=== PATIENT | female | born 1985 | race Caucasian/White ===

== ENCOUNTER 2016-09-25 12:08 | Inpatient (IN) | payer BC ==
[2016-09-25] MEDS ORDERED: ONDANSETRON HCL/PF 2 MG/ML VIAL IV PRN (12:10)
[2016-09-25] MEDS ORDERED: BUTORPHANOL TARTRATE 2 MG/ML VIAL IV PRN (12:10)
[2016-09-25] MEDS ORDERED: RINGERS SOLUTION,LACTATED 1,000 ML IV PRN (12:10)
[2016-09-25] MEDS ORDERED: OXYTOCIN/DEXTROSE 5%-WATER 30 UNITS/500 ML BAG IV ONE ×2 (12:10→15:47)
[2016-09-25] MEDS ORDERED: RINGERS SOLUTION,LACTATED 1,000 ML IV ONE (12:10)
[2016-09-25] MEDS ORDERED: LIDOCAINE HCL 50 ML VIAL PERI PRN (12:10)
[2016-09-25] MEDS: DEXTROSE 5%-LACTATED RINGERS 1,000 ML IV PRN ×2 (12:31→15:32)
--- NOTE | 2016-09-25 12:49 | PN ---
Progess Note - Interim Narrative: 09/25/16 12:47 Subjective-complaining of contractions 5 out of 10 Objective- SVE- 5-/-2, amniotomy performed, minimal amount of fluid FHTs- 140s, moderate variability, positive accelerations, no decelerations [place]- every 2 minutes Assessment and plan- Labor-spontaneous continue to monitor GBS status-negative Pain control as needed Continue current plan of care.
[2016-09-25] MEDS ORDERED: BUPIVACAINE HCL/0.9 % NACL/PF 250 ML EP PRN ×2 (14:31→21:11)
--- NOTE | 2016-09-25 14:36 | OR ---
Anesthesia Pre Procedure Eval Date of Service: 09/25/16 Pre Procedure Evaluation: Last Vital Signs Temp 36.7 C 01/13/14 10:00 Pulse Resp BP 116/73 01/13/14 11:12 Pulse Ox Anesthesia Pre Procedure Evaluation Heart Rate:86 Blood Pressure:130/67 Termperature:36.9 Respiratory Rate:18 SaO2:98 DATE: 09/25/2016 TIME: 1435 INDICATIONS: Active labor, labor pain PAST MEDICAL HISTORY: Primipara patient in active labor requesting labor analgesia. EXAM: Heart regular; lungs clear ASSESSMENT OF MEDICAL STATUS: Appropriate candidate for labor analgesia PLANNED PROCEDURE: Combination spinal epidural for labor analgesia. Home Medications: HOME MEDICATIONS Vit#96/Ferrous Fum/FA [ S] 1 tab PO DAILY 09/25/16 [Last Taken 09/24/16 09:00]
[2016-09-25] MEDS ORDERED: fentaNYL CITRATE/PF 50 MCG/ML AMPUL IT SCH (14:45)
--- NOTE | 2016-09-25 15:07 | OR ---
Anesthesia Procedure Note - Anesthesia Procedure Note Date of Service: 09/25/16 Narrative: Vital Signs - Last Taken Temp 36.7 C 01/13/14 10:00 Pulse Resp BP 116/73 01/13/14 11:12 Pulse Ox 09/25/16 15:05 ANESTHESIA PROCEDURE NOTE Date of Procedure: 09/25/2016 Time of procedure: 1435. Performed by: SONAL Ohara CRNA, MSN Bag Washer: Emy Ruiz RN. Preprocedure diagnosis: Active labor, labor pain. Post procedure diagnosis: Same. Procedure: Labor Epidural Placement L3 4. Indications: Labor pain. Findings: See below. Details of the procedure: The patient was placed on the side of the bed in sitting position. The patient was prepped with DuraPrep and draped in a sterile fashion. Lidocaine 1% was infiltrated to the skin and subcutaneous tissues at the level of the L3 4 interspace. The epidural space was identified using a 18-gauge Tuohy needle with [id number] technique. Fentanyl 20 g was given intrathecally the intrathecal needle was then removed and the epidural catheter was threaded approximately 4 cm, the epidural needle was then removed, and after careful aspiration 3 mL of 1.5% lidocaine with 1-200,000 epinephrine was injected without change in maternal heart rate or sensorium. The catheter was then taped in place. EBL: Minimal. Fluids: N/A. Specimen: N/A. Post procedure condition: The patient tolerated the procedure well with good relief. No complications were noted. Thank you for this consultation. Toño Bojorquez CRNA, SONAL, MSN
[2016-09-26] MEDS ORDERED: ONDANSETRON HCL/PF 2 MG/ML VIAL IV ONE (02:19)
[2016-09-26] MEDS ORDERED: GLYCERIN/WITCH HAZEL LEAF 40 APPL BOX TP PRN (02:27)
[2016-09-26] MEDS ORDERED: HYDROCORTISONE 30 APPL TUBE TP PRN (02:27)
[2016-09-26] MEDS ORDERED: oxyCODONE HCL/ACETAMINOPHEN 1 TAB TABLET PO PRN (02:27)
[2016-09-26] MEDS ORDERED: SENNOSIDES 8.6 MG TABLET PO PRN (02:27)
[2016-09-26] MEDS ORDERED: OXYTOCIN/DEXTROSE 5%-WATER 30 UNITS/500 ML BAG IV ONE (02:27)
[2016-09-26] MEDS ORDERED: BENZOCAINE/MENTHOL 81 SPRAY CAN TP PRN (02:27)
[2016-09-26] MEDS ORDERED: BISACODYL 10 MG SUPP.RECT RC PRN (02:27)
--- NOTE | 2016-09-26 02:36 | OR ---
Operative Report - Dictated Report Narrative: Spontaneous Vaginal Delivery Viable male . Apgars of 4 at 1 min and 8 at 5 min. Presentation was R OA. Tight nuchal cord that was clamped and cut at the perineum. The left anterior shoulder delivered without difficulty followed by the posterior shoulder and the remainder of the baby. Copious amount of thick meconium was noted after delivery of the baby. The baby was taken straight to the warmer. Weight: 9lbs 5.7oz, 4245grams Placenta was delivered spontaneously and intact. Partial 3rd degree laceration repaired with 2-0 vicryl. Estimated blood loss: 200 ml Mother and baby tolerated delivery well. History for Definition: * The number of deliveries resulting in a live the patient experienced prior to current hospitalization * The previous delivery of live twins or any live multiple gestation is considered one live event. *If primagravida or nulliparous is documented select zero for the number of previous live births. Live Events: 0
[2016-09-26] MEDS: oxyCODONE HCL/ACETAMINOPHEN 1 TAB TABLET PO PRN ×4 (03:01→19:03)
[2016-09-26] MEDS: IBUPROFEN 800 MG TABLET PO PRN ×2 (07:27→16:06)
[2016-09-26] MEDS: DOCUSATE SODIUM 100 MG CAPSULE PO SCH ×2 (12:22→21:33)
[2016-09-27] MEDS: IBUPROFEN 800 MG TABLET PO PRN ×4 (01:00→23:30)
[2016-09-27] MEDS: oxyCODONE HCL/ACETAMINOPHEN 1 TAB TABLET PO PRN ×4 (04:01→23:31)
--- NOTE | 2016-09-27 08:09 | PN ---
Progess Note - Interim Narrative: 09/27/16 08:08 progress note Subjective: The patient is doing well. She is ambulating, voiding, tolerating by mouth. She has minimal pain and moderate lochia. Objective: General: No acute distress Abdomen: Soft, nontender, fundus is firm just below the umbilicus Extremities: minimal edema, nontender to palpation Assessment and plan: day 1 Feeding: Breast Pain: Controlled with by mouth medication Routine care.
[2016-09-27] MEDS: DOCUSATE SODIUM 100 MG CAPSULE PO SCH (08:43)
[2016-09-28] MEDS: DOCUSATE SODIUM 100 MG CAPSULE PO SCH ×2 (01:26→09:12)
[2016-09-28] MEDS: IBUPROFEN 800 MG TABLET PO PRN ×2 (05:50→12:58)
[2016-09-28] MEDS: oxyCODONE HCL/ACETAMINOPHEN 1 TAB TABLET PO PRN ×3 (05:50→12:59)
[2016-09-28 08:08] VITALS: BP 108/66
--- NOTE | 2016-09-28 08:41 | PN ---
Subjective - Date and Time Seen Date: 09/28/16 Time: 08:40 Objective - Vitals Vitals: Last Vital Signs Temp 36.4 C L 09/28/16 07:53 Pulse 70 09/28/16 07:53 Resp 20 09/28/16 07:53 BP 108/66 09/28/16 07:53 Pulse Ox 99 09/28/16 01:47 Patient denies complaints. Breast-feeding and bonding well with . Lochia wnl Abdomen - soft, nontender Uterus - firm, at umbilicus - 2 No calf tenderness Impression: day #2 - s/p spontaneous vaginal delivery. Third degree vaginal laceration Plan: Routine discharge instructions. Perineal care reviewed.
== END 2016-09-28 15:40 | disposition home or self-care (01) | DRG 775 ==
LOC: OB 12:08
PROVIDERS: ADMIT Obstetrics & Gynecology Gynecologic Oncology; ATTEND Obstetrics & Gynecology Gynecologic Oncology
PROC: 10E0XZZ Delivery of Products of Conception, External Approach (ICD-10-PCS; principal; 2016-09-26)
PROC: 0DQR0ZZ Repair Anal Sphincter, Open Approach (ICD-10-PCS; 2016-09-26)
PROC: 4A1HXCZ Monitoring of Products of Conception, Cardiac Rate, External Approach (ICD-10-PCS; 2016-09-26)
PROC: 10907ZC Drainage of Amniotic Fluid, Therapeutic from Products of Conception, Via Natural or Artificial Opening (ICD-10-PCS; 2016-09-26)
PROC: 3E0S3CZ (ICD-10-PCS; 2016-09-26)
DX: O69.1XX0 Labor and delivery complicated by cord around neck, with compression, not applicable or unspecified (principal); O70.20 Third degree perineal laceration during delivery, unspecified; O77.0 Labor and delivery complicated by meconium in amniotic fluid; Z3A.40 40 weeks gestation of pregnancy; Z37.0 Single live birth

== ENCOUNTER 2019-07-09 21:18 | Inpatient (IN) ==
[2019-07-09] MEDS ORDERED: NALOXONE HCL 1 MG/1 ML SYRG IV PRN (21:51)
[2019-07-09] MEDS ORDERED: ONDANSETRON HCL/PF 2 MG/ML VIAL IV PRN (21:51)
[2019-07-09] MEDS ORDERED: BUPIVACAINE HCL/0.9 % NACL/PF 250 ML EP PRN (21:51)
--- NOTE | 2019-07-09 21:51 | HP ---
Chief Complaint - Chief Complaint Date of Service: 07/09/19 Time of Service: 21:41 Chief Complaint: contractions History of Present Illness: 33 yo at 40 1/7 weeks presents to L&D complaining of painful contractions since earlier today. Denies WONG, visual changes, epigastric pain, decreased movement or LOF. This complicated by ADHD, fibromyalgia, anemia, h/o 3rd degree vaginal laceration. Rh positive Rubella immune GBS negative Medical History (Last Reviewed 07/09/19 @ 21:42 by Schuyler House DO) ADD (attention deficit disorder) Onset Date: ~06/19/12 Allergic rhinitis Fibromyalgia Anemia Onset Date: ~08/27/14 Heart palpitations Onset Date: ~05/07/13 Lipoma Onset Date: ~2013 Dr. Kathleen-benign lobulated lipoma left posterior neck Spontaneous Onset Date: ~12/2014, 07/2015 Heart palpitations Surgical History: Surgical History (Last Reviewed 07/09/19 @ 21:42 by Schuyler House DO) History of wisdom tooth extraction Onset Date: ~2007 Family History: Family History (Last Reviewed 07/09/19 @ 21:42 by Schuyler House DO) Mother Alive and well Father Heart disease Social History: (Last Reviewed 07/09/19 @ 21:42 by Schuyler House DO) Social History: adopted: No Marital status: household members: children, spouse current occupational status: employed current occupation: CATERING ADMINISTRATIVE ASSISTANT Highest education level completed: high school graduate Service: No Tobacco: Smoking Status: Never smoker Alcohol: alcohol intake: never Substance Use: substance use type: does not use Dietary Habits: caffeine: No Pets: pets and animals: cat(s), dog(s) Review Of Systems (GEN) - Review of Systems Generalized/Overall Review: Present: No Symptoms Reported EENTM: Present: No Symptoms Reported Respiratory: Present: No Symptoms Reported Cardiac: Present: No Symptoms Reported Abdominal: Present: Other - contractions Genitourinary: Present: No Symptoms Reported Musculoskeletal: Present: No Symptoms Reported Neurological: Present: No Symptoms Reported Skin: Present: No Symptoms Reported Endocrine: Present: No Symptoms Reported Allergies/Adverse Reactions: Allergies Allergy/AdvReac Type Severity Reaction Status Date / Time drospirenone [From KATRIN (28)] AdvReac palpitation Verified 07/04/19 10:58 s ethinyl estradiol AdvReac palpitation Verified 07/04/19 10:58 [From KATRIN (28)] s Home Medications: HOME MEDICATIONS Vits96/Iron Fum/Folic [ S] 1 tab PO DAILY 09/25/16 [Last Taken 09/24/16 09:00] breast pump See Dose Instructions .ROUTE .MEDSUJOHNLY #1 ea 05/09/19 [Last Taken Unknown] Exam - Exam Vital Signs: BP 144/71, P 95, R 18, T 36.3, O2 100% Constitutional: Present: Alert, Oriented x3, Moderate distress - with contractions ENT Exam: Present: hearing grossly normal Neck: Present: non-tender, supple, trachea midline. Absent: thyromegaly Breasts: Present: Exam deferred Respiratory: Present: lungs clear, no respiratory distress Cardiovascular/Chest: Present: regular rate, rhythm, no edema Abdomen: Present: soft, nontender, no rebound tenderness, other - gravid /Rectal: Present: Other - cervix - 6/70/-2 Extremity: Present: no pedal edema, no calf tenderness Skin Exam: Present: normal color, warm/dry, no cyanosis Lymphatic: Present: no adenopathy Neurologic: Present: alert, normal mood/affect, oriented x 3 Appearance: Present: appropriate appearance, appropriate insight Eye contact: Present: cooperative, good eye contact Thoughts: Present: normal thought pattern, normal mood /affect Assessment/Plan - Assessment/Plan (1) Labor established Assessment: Admit for routine management of labor. Epidural PRN. Problem: Acute
[2019-07-09] MEDS ORDERED: ONDANSETRON 4 MG TAB.RAPDIS PO PRN ×2 (21:52→21:53)
[2019-07-09] MEDS ORDERED: DEXTROSE 5%-LACTATED RINGERS 1,000 ML IV PRN ×2 (21:52→21:53)
[2019-07-09] MEDS ORDERED: OXYTOCIN/DEXTROSE 5%-WATER 30 UNITS/500 ML BAG IV ONE (21:52)
[2019-07-09] MEDS ORDERED: RINGER'S SOLUTION,LACTATED 1,000 ML IV ONE ×2 (21:52→21:53)
[2019-07-09] MEDS ORDERED: fentaNYL CITRATE/PF 50 MCG/ML AMPUL IT SCH (22:00)
--- NOTE | 2019-07-09 22:26 | ANES ---
Anesthesia Pre Procedure Eval Vitals/Labs: Last Vital Signs Temp 36.3 C 07/09/19 22:07 Pulse 95 07/09/19 22:07 Resp 18 07/09/19 22:07 BP 144/71 H 07/09/19 22:07 Pulse Ox 100 07/09/19 22:07 HOME MEDICATIONS RX: Vits96/Iron Fum/Folic [ S] 1 tab PO DAILY 09/25/16 [Last Taken 09/24/16 09:00] breast pump See Dose Instructions .ROUTE .MEDSUPPLY #1 ea 05/09/19 [Last Taken Unknown] Allergies/Adverse Reactions: Allergies Allergy/AdvReac Type Severity Reaction Status Date / Time drospirenone [From KATRIN (28)] AdvReac palpitation Verified 07/04/19 10:58 s ethinyl estradiol AdvReac palpitation Verified 07/04/19 10:58 [From KATRIN (28)] s - Planned Procedure Planned Procedure: LABOR Medication List Reviewed:: Yes Allergies Verified: Yes Medical History (Last Reviewed 07/09/19 @ 22:25 by Faizan Sanchez CRNA) ADD (attention deficit disorder) Onset Date: ~06/19/12 Allergic rhinitis Fibromyalgia Anemia Onset Date: ~08/27/14 Heart palpitations Onset Date: ~05/07/13 Lipoma Onset Date: ~2013 Dr. Kathleen-benign lobulated lipoma left posterior neck Spontaneous Onset Date: ~12/2014, 07/2015 Heart palpitations Surgical History (Last Reviewed 07/09/19 @ 22:25 by Faizan Sanchez CRNA) History of wisdom tooth extraction Onset Date: ~2007 Family History (Last Reviewed 07/09/19 @ 22:25 by Faizan Sanchez CRNA) Mother Alive and well Father Heart disease - Family Anesthesia History Family History:: no untoward family reactions to anesthesia - Airway/Neck/Teeth Within Normal Limits:: Yes Teeth Condition: intact Neck Exam: full range of motion Mallampatti Score: 2 Thyromental (T-M) distance: > 6 cm Mandibulo Hyoid distance: > 3 cm - Respiratory Respiratory Physical: lungs clear Smoking Status: Never smoker Sleep Apnea currently treated: No Sleep Apnea by current assessment: No - Cardiovascular Tolerate Activity: Good - Gastrointestinal NPO since: 1800 - Anesthesia Assessment and Plan ASA Class: PS, II, E Anesthesia Type Plan: Epidural Planned difficult intubation/equipment available: No
--- NOTE | 2019-07-09 22:27 | ANES ---
Post Anesthesia Discharge - Transfer of Care Transfer of Care handoff given to nurse: Yes - Anesthesia Post Op Note Anesthesia Post Op Note: Care transfered to OB RN
--- NOTE | 2019-07-09 22:27 | ANES ---
Post Anesthesia Assessment - Vital Signs Vitals: Last Vital Signs Temp 36.3 C 07/09/19 22:07 Pulse 95 07/09/19 22:07 Resp 18 07/09/19 22:07 BP 144/71 H 07/09/19 22:07 Pulse Ox 100 07/09/19 22:07 Airway Patency: Normal - Mental Status Level Of Consciousness: Awake - Pain Level Pain Score: 2 - N/V Assessment Nausea/Vomiting Presence: None Dehydration:: No
--- NOTE | 2019-07-09 22:29 | ANES ---
Anesthesia Procedure Note Procedure Note: ANESTHESIA PROCEDURE NOTE Date of Procedure: 07/09/2019 Time of procedure: 2209 Performed by: Costa Sanchez CRNA Bonded Strand Operator: None. Preprocedure diagnosis: Active labor. Post procedure diagnosis: Same. Procedure: Insertion of labor epidural. Indications: The patient is a 33-year-old multigravida female in active labor requesting labor epidural for pain management. Findings: See below. Details of the procedure: The patient was placed in a sitting position. Back was prepped with DuraPrep. Patient was then draped in a sterile fashion. Lidocaine 1% was infiltrated to the skin and subcutaneous tissues at the level of the L3 4 interspace. The epidural space was identified using a 18-gauge Tuohy needle with [id number] technique. 20 mcg fentanyl was given intrathecally using a 27 ga. spinal needle. Epidural catheter was inserted without difficulty. Negative test dose was elicited using 5 mL of 1.5% preservative-free lidocaine plus epinephrine 1 200,000. The epidural catheter was then taped and secured in place. EBL: Minimal. Fluids: N/A. Specimen: N/A. Post procedure condition: The patient tolerated the procedure well. No complications were noted. Thank you for this consultation. Paz CRNA
[2019-07-09] MEDS ORDERED: FLU VACC QS2019-20(6MOS UP)/PF 60 MCG/0.5 ML SYRINGE IM ONE (22:36)
[2019-07-09 22:52] LABS: Cocaine Ur Negative (NEGATIVE); Urine Barbiturate Negative (NEGATIVE); Urine Benzodiazepines Negative (NEGATIVE); Urine Opiates Negative (NEGATIVE); Urine PCP Negative (NEGATIVE); Urine THC Negative (NEGATIVE)
--- NOTE | 2019-07-09 23:49 | PN ---
Progess Note - Interim Date: 07/09/19 Time: 23:47 Narrative: 07/09/19 23:47 Patient comfortable with epidural Vital signs stable. FHT: 145 baseline, reassuring contractions q 1-2 min Cervix: Rim/-1, AROM-clear approximately 45 minutes ago. Impression: Intrauterine at 40 1/7 weeks in labor Plan: Anticipate normal spontaneous vaginal delivery soon
[2019-07-10] MEDS ORDERED: SENNOSIDES 8.6 MG TABLET PO PRN ×2 (02:01→02:06)
[2019-07-10] MEDS ORDERED: OXYTOCIN/DEXTROSE 5%-WATER 30 UNITS/500 ML BAG IV ONE ×2 (02:01→02:06)
[2019-07-10] MEDS ORDERED: HYDROCORTISONE 30 APPL TUBE TP PRN ×2 (02:01→02:06)
[2019-07-10] MEDS ORDERED: ACETAMINOPHEN 325 MG TABLET PO PRN ×2 (02:01→02:06)
[2019-07-10] MEDS ORDERED: GLYCERIN/WITCH HAZEL LEAF 40 APPL BOX TP PRN ×2 (02:01→02:06)
[2019-07-10] MEDS ORDERED: IBUPROFEN 800 MG TABLET PO PRN (02:01)
[2019-07-10] MEDS ORDERED: BISACODYL 10 MG SUPP.RECT RC PRN ×2 (02:01→02:06)
[2019-07-10] MEDS ORDERED: BENZOCAINE/MENTHOL 81 SPRAY CAN TP PRN ×2 (02:01→02:06)
[2019-07-10] MEDS ORDERED: oxyCODONE HCL/ACETAMINOPHEN 1 TAB TABLET PO PRN (02:01)
--- NOTE | 2019-07-10 02:01 | OR ---
Operative Report - Dictated Report Narrative: Spontaneous vaginal delivery of vigorously crying viable female at 0133 on 07/10/2019 with Apgars 8 and 9, weighing 3918 g in SHAYNA position. Cord clamping delayed approximately 1 minute Placenta delivered complete, intact, with three vessel cord Estimated blood loss: 100 mL Anesthesia: Epidural Lacerations: Second-degree vaginal laceration (4 cm) repaired with 3-0 Vicryl Rapide History for MU History for Definition: * The number of deliveries resulting in a live the patient experienced prior to current hospitalization * The previous delivery of live twins or any live multiple gestation is considered one live event. *If primagravida or nulliparous is documented select zero for the number of previous live births. Live Events: Live Events: 1
[2019-07-10] MEDS ORDERED: ONDANSETRON HCL/PF 2 MG/ML VIAL IV PRN (02:06)
[2019-07-10] MEDS: IBUPROFEN 800 MG TABLET PO PRN ×3 (03:03→17:37)
[2019-07-10] MEDS: oxyCODONE HCL/ACETAMINOPHEN 1 TAB TABLET PO PRN ×4 (06:13→22:33)
[2019-07-10] MEDS ORDERED: DOCUSATE SODIUM 100 MG CAPSULE PO SCH (09:00)
[2019-07-10] MEDS: PRENATAL VITS96/IRON FUM/FOLIC 1 TAB TABLET PO SCH (09:43)
[2019-07-10] MEDS: DOCUSATE SODIUM 100 MG CAPSULE PO SCH ×2 (09:44→22:11)
--- NOTE | 2019-07-10 14:34 | PN ---
Subjective - Date and Time Seen Date: 07/10/19 Time: 14:28 Objective - Vitals Vitals: Last Vital Signs Temp 36.2 C 07/10/19 12:06 Pulse 81 07/10/19 12:06 Resp 18 07/10/19 12:06 BP 111/63 07/10/19 12:06 Pulse Ox 98 07/10/19 12:06 Patient denies complaints. Breast-feeding. Lochia wnl abdomen - soft, nontender Uterus -firm, at umbilicus - 1 no calf tenderness Impression: day #1 - s/p spontaneous vaginal delivery. Plan: Continue routine care Cauti Physician Documentation - Urinary Catheter Management Urethral ([place]) Date of Insertion: 07/09/19 Time of Insertion: 23:30 Date of Removal: 07/10/19 Time of Removal: 01:30 Assessment/Plan - Problems/Diagnosis (1) Labor established Problem: Acute
[2019-07-11] MEDS: oxyCODONE HCL/ACETAMINOPHEN 1 TAB TABLET PO PRN ×2 (04:41→20:12)
[2019-07-11] MEDS: IBUPROFEN 800 MG TABLET PO PRN ×2 (04:42→15:52)
--- NOTE | 2019-07-11 08:51 | PN ---
Subjective - Date and Time Seen Date: 07/11/19 Time: 08:50 Objective - Vitals Vitals: Last Vital Signs Temp 36.2 C 07/11/19 07:40 Pulse 89 07/11/19 07:40 Resp 18 07/11/19 07:40 BP 104/56 07/11/19 07:40 Pulse Ox 96 07/11/19 07:40 Patient denies complaints. Patient has not been able to get much rest yet. Lochia wnl abdomen - soft, nontender Uterus -firm, at umbilicus - 1 no calf tenderness Impression: day #1 - s/p spontaneous vaginal delivery. Plan: Continue routine care. Encouraged patient to allow nursing staff to take baby and hold visitors so she can get this rest she needs. Cauti Physician Documentation - Urinary Catheter Management Urethral ([place]) Date of Insertion: 07/09/19 Time of Insertion: 23:30 Date of Removal: 07/10/19 Time of Removal: 01:30 Assessment/Plan - Problems/Diagnosis (1) Labor established Problem: Acute
[2019-07-11] MEDS: DOCUSATE SODIUM 100 MG CAPSULE PO SCH ×2 (12:52→20:12)
[2019-07-11] MEDS: PRENATAL VITS96/IRON FUM/FOLIC 1 TAB TABLET PO SCH (12:52)
[2019-07-12] MEDS: oxyCODONE HCL/ACETAMINOPHEN 1 TAB TABLET PO PRN ×5 (02:29→23:22)
[2019-07-12] MEDS: IBUPROFEN 800 MG TABLET PO PRN ×4 (02:29→23:22)
--- NOTE | 2019-07-12 07:30 | PN ---
Subjective - Date and Time Seen Date: 07/12/19 Time: 07:30 Objective - Vitals Vitals: Last Vital Signs Temp 36.4 C 07/12/19 00:33 Pulse 80 07/12/19 00:33 Resp 18 07/12/19 00:33 BP 100/55 07/12/19 00:33 Pulse Ox 98 07/12/19 00:33 Patient denies complaints. Breast-feeding Lochia wnl abdomen - soft, nontender Uterus -firm, at umbilicus - 2 no calf tenderness Impression: day #2 - s/p spontaneous vaginal delivery. Plan: Routine discharge instructions Cauti Physician Documentation - Urinary Catheter Management Urethral ([place]) Date of Insertion: 07/09/19 Time of Insertion: 23:30 Date of Removal: 07/10/19 Time of Removal: 01:30 Assessment/Plan - Problems/Diagnosis (1) Labor established Problem: Acute
[2019-07-12] MEDS: DOCUSATE SODIUM 100 MG CAPSULE PO SCH ×2 (08:17→19:54)
[2019-07-12] MEDS: PRENATAL VITS96/IRON FUM/FOLIC 1 TAB TABLET PO SCH (08:17)
[2019-07-12] MEDS ORDERED: FLU VACC QS2019-20(6MOS UP)/PF 60 MCG/0.5 ML SYRINGE IM ONE ×2 (08:26→14:00)
[2019-07-12 20:32] VITALS: BP 118/70
== END 2019-07-12 23:59 | disposition home or self-care (01) | DRG 806 ==
LOC: OBCLINIC 21:18 → OB 21:35
PROVIDERS: ADMIT Obstetrics & Gynecology; ATTEND Obstetrics & Gynecology
CPT/HCPCS: 59025; 80307; 90686